=== PATIENT | female | born 1990 | race Caucasian/White ===

== ENCOUNTER 2019-10-07 23:46 | Emergency (ER) | payer SELFPAY ==
[~2019-10-07] VITALS: Ht 157 cm; Wt 105.0 kg
[2019-10-08 02:53] LABS: BASOPHILS % (AUTO) 0 % (0-10); EOSINOPHILS # (AUTO) 0.1 10^3/uL (0.0-0.3); EOSINOPHILS % (AUTO) 1 % (0-10); LYMPHOCYTES # (AUTO) 2.5 X 10^3 (1.0-4.0); LYMPHOCYTES % (AUTO) 46 % (12-44); MEAN CORPUSCULAR HGB CONC 33 G/DL (32-36); MEAN CORPUSCULAR VOLUME 86 FL (80-99); MEAN PLATELET VOLUME 9.7 FL (7.4-10.4); MONOCYTES # (AUTO) 0.3 X 10^3 (0.0-1.0); MONOCYTES % (AUTO) 5 % (0-12); NEUTROPHILS # (AUTO) 2.6 X 10^3 (1.8-7.8); NEUTROPHILS % (AUTO) 48 % (42-75); PLATELET COUNT 165 10^3/uL (130-400); RED CELL DISTRIBUTION WIDTH 14.2 % (10.0-14.5); WHITE BLOOD COUNT 5.4 10^3/uL (4.3-11.0)
[2019-10-08 03:05] LABS: HEMATOCRIT 40 % (35-52); HEMOGLOBIN 7.2 G/DL (11.5-16.0); MEAN CORPUSCULAR HEMOGLOBIN 32 PG (25-34)
--- NOTE | 2019-10-08 04:41 | ED GU-Female ---
General Chief Complaint: Female Reproductive Stated Complaint: VAGINAL BLEEDING 5 WKS Nursing Triage Note: Positive Preg test on tuesday10/06/19. approx 7 weeks preg. starting bleeding before arrival. blood on tissue with wiping. Nursing Sepsis Screen: No Definite Risk Source: patient History of Present Illness Date Seen by Provider: Oct 08, 2019 Time Seen by Provider: 23:48 Initial Comments PT ARRIVES VIA POV FROM HOME PT STATES SHE IS 5 WEEKS AND BLEEDING STATES HER LMP WAS 08/30/19 AND WAS NORMAL HAD A POSITIVE HOME TEST ON Tuesday10/05/19. STARTED BLEEDING TONIGHT IMMEDIATELY PRIOR TO ARRIVAL--STATES SHE HAD BLOOD ON TISSUE WITH WIPING AND RUSHED STRAIGHT HERE IS NOT BLEEDING NOW AND HAS NOT PUT ON A PAD NO PAIN NO NAUSEA/VOMITING NO URINARY SYMPTOMS NO VAGINAL DISCHARGE PRIOR TO THIS. PT IS AB 0--DELIVERED VIA AT 23 WEEKS GESTATION AND CHILD THE NEXT DAY. NO RECENT ILLNESS OR SICK CONTACTS OR KNOWN EXPOSURE TO COVID-19 PCP: [facility] [place]--"JUST MOVED HERE" 2 WEEKS AGO, FROM [place], [place] ( [place]) --AMID COVID PANDEMIC, DURING STAY AT HOME MANDATE PLANS ON SEEING OB AT SAME [facility] Allergies and Home Medications Allergies Coded Allergies: methotrexate (Verified Allergy, Unknown, 10/08/19) Patient Home Medication List Home Medication List Reviewed: Yes Review of Systems Review of Systems Constitutional: no symptoms reported, other (NO FEVER OR RECENT ILLNESS) EENTM: no symptoms reported Respiratory: no symptoms reported Cardiovascular: no symptoms reported Gastrointestinal: no symptoms reported; No abdominal pain, No nausea, No vomiting Genitourinary: see HPI : Yes LMP: August 30, 2019 Musculoskeletal: no symptoms reported Skin: no symptoms reported Psychiatric/Neurological: No Symptoms Reported Endocrine: No Symptoms Reported Hematologic/Lymphatic: No Symptoms Reported Past Ricvfpk-[id number]-[id number] Hx Past Med/Social Hx: Reviewed and Corrections made Patient Social History Alcohol Use: Denies Use Recreational Drug Use: Yes (THC) Drug of Choice: THC Smoking Status: Current Everyday Smoker (1/2 PPD) Type Used: Cigarettes 2nd Hand Smoke Exposure: No Recent Foreign Travel: No Contact w/Someone Who Travel: No Recent Infectious Disease Expo: No Recent Hopitalizations: No Physical Abuse: No Sexual Abuse: No Mistreated: No Fear: No Seasonal Allergies Seasonal Allergies: Yes Past Medical History Surgeries: Yes Section Respiratory: Yes Asthma Cardiac: No Neurological: Yes Headaches /Migraines : Yes Last Menstrual Period: August 31, 2019 Hx : 2 Hx Para: 1 (DELIVERED AT 23 WEEKS GESTATION, CHILD THE NEXT DAY) Hx Total # of Abortions (Sp): 0 Reproductive Disorders: No Genitourinary: No Gastrointestinal: No Musculoskeletal: Yes Rheumatoid Arthritis Endocrine: No HEENT: No Cancer: No Psychosocial: Yes Anxiety, PTSD Integumentary: No Blood Disorders: No Adverse Reaction/Blood Tranf: No Physical Exam Vital Signs Vital Signs - First Documented 10/08/19 00:35 Temp 36.7 Pulse 82 Resp 20 B/P (MAP) 129/86 (100) Pulse Ox 98 Capillary Refill : Less Than 3 Seconds Height, Weight, BMI Height: '" Weight: lbs. oz. kg; 42.00 BMI Method: General Appearance: no apparent distress, obese Cardiovascular: normal peripheral pulses, regular rate, rhythm, no murmur Respiratory: normal breath sounds, no respiratory distress, no accessory muscle use Gastrointestinal: non tender, soft Pelvic: normal external exam, normal adnexa, no cerv. motion tender, no masses; No discharge, No lesions, No tender w/ cervical motion, No tender adnexa, No tender uterus; vaginal bleeding (VERY SCANT AMOUNT OF OLD BLOOD AT CERVIX. NO ACTIVE BLEEDING. NO PRODUCTS. NO VAGINAL DISCHARGE. ) Extremities: normal inspection, no pedal edema Neurologic/Psychiatric: dust puller II-XII nml as tested, no motor/sensory deficits, alert, oriented x 3, other (ANXIOUS) Skin: normal color, warm/dry Progress/Results/Core Measures Suspected Sepsis Recent Fever Within 48 Hours: No Infection Criteria Present: None New/Unexplained Altered Menta: No Sepsis Screen: No Definite Risk SIRS Temperature: Pulse: 82 Respiratory Rate: 20 Laboratory Tests 10/08/19 02:37: White Blood Count 5.4 Blood Pressure 129 /86 Mean: 100 Laboratory Tests 10/08/19 02:37: Platelet Count 165 Results/Orders Lab Results Laboratory Tests Test 10/08/19 02:37 10/08/19 04:24 Range/Units White Blood Count 5.4 4.3-11.0 10^3/uL Red Blood Count 2.22 L 4.35-5.85 10^6/uL Hemoglobin 7.2 L 11.5-16.0 G/DL Hematocrit 40 35-52 % Mean Corpuscular Volume 86 80-99 FL Mean Corpuscular Hemoglobin 32 25-34 PG Mean Corpuscular Hemoglobin Concent 33 32-36 G/DL Red Cell Distribution Width 14.2 10.0-14.5 % Platelet Count 165 130-400 10^3/uL Mean Platelet Volume 9.7 7.4-10.4 FL Neutrophils (%) (Auto) 48 42-75 % Lymphocytes (%) (Auto) 46 H 12-44 % Monocytes (%) (Auto) 5 0-12 % Eosinophils (%) (Auto) 1 0-10 % Basophils (%) (Auto) 0 0-10 % Neutrophils # (Auto) 2.6 1.8-7.8 X 10^3 Lymphocytes # (Auto) 2.5 1.0-4.0 X 10^3 Monocytes # (Auto) 0.3 0.0-1.0 X 10^3 Eosinophils # (Auto) 0.1 0.0-0.3 10^3/uL Basophils # (Auto) 0.0 0.0-0.1 10^3/uL Human Chorionic Gonadotropin, Quant 696 H <5 MIU/ML My Orders Orders - NORTH MARTÍNEZ DO Cbc With Automated Diff (10/07/19 23:49) Hcg,Quantitative (10/07/19 23:49) Abo Rh Type (10/07/19 23:49) Vital Signs/I&O Capillary Refill : Less Than 3 Seconds Blood Pressure Mean: 100 Progress Note : Progress Note MARKED DELAY IN OBTAINING LAB, AND THEN MARKED DELAY IN OBTAINING RESULTS PT COMPLETELY ASYMPTOMATIC DURING ENTIRE STAY, AND NO VAGINAL BLEEDING OF ANY KIND DISCUSSED PT'S SIGNIFICANT ANEMIA, PT STATES SHE HAS BEEN ANEMIC "ALL MY LIFE" BUT HAS NO IDEA WHAT HER NORMAL HGB IS, AND STATES IT HAS BEEN "A LONG TIME" SINCE SHE HAD IT CHECKED. PT IS ASYMPTOMATIC AND VITALS ARE NORMAL NO ULTRASOUND AVAILABLE HERE AT THIS TIME ADVISED HER TO FOLLOW UP WITH [facility] IN 1-2 DAYS FOR FURTHER CARE, FOLLOW UP LAB, AND IF BLEEDING PERSISTS, THEY COULD ARRANGE OUTPATIENT ULTRASOUND. PT HAS VITAMINS AT HOME. ADVISED HER TO START TAKING THEM TODAY AND EVERY DAY Departure Impression Primary Impression: Threatened in early Additional Impression: Chronic anemia Disposition: HOME, SELF-CARE Condition: Stable Departure-Patient Inst. Referrals: NO,LOCAL PHYSICIAN (PCP/Family) Primary Care Physician Patient Instructions: Threatened Miscarriage (DC), Anemia Caused by Low Iron, Adult (DC) Add. Discharge Instructions: NOTHING IN VAGINA--NO TAMPONS, DOUCHING OR INTERCOURSE TAKE YOUR VITAMINS EVERY DAY KEEP AN ACCURATE PAD COUNT--RETURN IF SOAKING ONE MAXI PAD AN HOUR FOLLOW UP WITH [facility] IN 1-2 DAYS FOR FURTHER CARE. CALL TODAY FOR APPOINTMENT All discharge instructions reviewed with patient and/or family. Voiced understanding. NORTH MARTÍNEZ DO Oct 08, 2019 04:41
[2019-10-08 06:00] VITALS: BP 129/80
== END 2019-10-08 06:00 | disposition home or self-care (01) ==
LOC: ER 23:48
DX: O20.0 Threatened abortion (principal); O99.011 Anemia complicating pregnancy, first trimester; D64.9 Anemia, unspecified; O99.331 Smoking (tobacco) complicating pregnancy, first trimester; F17.210 Nicotine dependence, cigarettes, uncomplicated; Z87.59 Personal history of other complications of pregnancy, childbirth and the puerperium; Z88.8 Allergy status to other drugs, medicaments and biological substances; Z3A.01 Less than 8 weeks gestation of pregnancy
CPT/HCPCS: 36415; 84702; 84703; 85025; 86900; 86901; 99282